=== PATIENT | female | born 1980 | race Caucasian/White ===

== ENCOUNTER 2018-11-27 23:17 | Emergency (ER) | payer MEDICAID ==
[~2018-11-27] VITALS: Ht 152.4 cm; Wt 55.8 kg
[2018-11-27 23:20] VITALS: BP 114/70
--- NOTE | 2018-11-27 23:20 | NUR ---
TO BED # 8 AMBULATORY, REPORT GIVEN TO PERLITA TURK
--- NOTE | 2018-11-27 23:24 | NUR ---
PATIENT PRESENTS ER WITH C/O SOB, COUGH AND CONGESTION X 2 WEEKS. PT STATED SHE HAS HX OF ASTHMA BUT DOES NOT CURRENTLY HAVE MEDICATION; PT HAS SOME WHEEZING BILATERAL. O2 SAT IS 99 PERCENT ON RA AT THIS TIME. PT DENIES FEVER AND VOMITING AND DIARRHEA. PT HAS SOME NAUSEA. PT STATES SHE IS 17 WEEKS AND IS CURRENTLY UNDER OB CARE. PT IS . PATIENT STATES PAIN OF 8/10 AT THIS TIME; VSS; PATIENT POSITIONED FOR COMFORT; HOB ELEVATED; BEDRAILS UP X2; BED DOWN. ER MD MADE AWARE OF PT STATUS.
[2018-11-27] MEDS ORDERED: ALBUTEROL 0.083% 2.5 MG/3 ML NEBU INH ONE (23:25)
[2018-11-27] MEDS ORDERED: ALBUTEROL SULFATE/IPRATROPIU 3 ML SOL IH ONE (23:25)
--- NOTE | 2018-11-27 23:31 | NUR ---
Breathing treatment administered at bedside by respiratory therapist.
[2018-11-27] MEDS ORDERED: ACETAMINOPHEN EXTRA STRENGTH 500 MG TAB PO ONE (23:50)
--- NOTE | 2018-11-27 23:53 | NUR ---
PATIENT STATES SHE FEELS RELIEF, NO WHEEZING. PATIENT BREATHING EVEN AND UNLABORED. DENIES SOB AT THIS TIME.
--- NOTE | 2018-11-28 00:35 | NUR ---
Dr. Shah re-evaluating patient at bedside.
[2018-11-28] MEDS ORDERED: ALBUTEROL SULFATE/IPRATROPIU 3 ML SOL IH ONE (00:40)
[2018-11-28] MEDS ORDERED: ALBUTEROL 0.083% 2.5 MG/3 ML NEBU INH ONE (00:40)
[2018-11-28 01:27] VITALS: BP 114/70
--- NOTE | 2018-11-28 01:27 | NUR ---
Patient discharged with v/s stable. Written and verbal after care instructions given and explained. Patient alert, oriented and verbalized understanding of instructions. Ambulatory with steady gait. All questions addressed prior to discharge. ID band removed. Patient advised to follow up with PMD. Rx of ZOFRAN, ALBUTEROL, AND MACROBID given. Patient educated on indication of medication including possible reaction and side effects. Opportunity to ask questions provided and answered.
== END 2018-11-28 01:27 | disposition home or self-care (01) ==
LOC: MED 23:17
DX: O99.512 Diseases of the respiratory system complicating pregnancy, second trimester (principal); O23.42 Unspecified infection of urinary tract in pregnancy, second trimester; J45.901 Unspecified asthma with (acute) exacerbation; E07.9 Disorder of thyroid, unspecified; Z3A.15 15 weeks gestation of pregnancy
CPT/HCPCS: 81002; 94640; 99284; J7613; J7620

== ENCOUNTER 2019-03-26 23:46 | Observation (INO) | payer MEDICAID ==
[~2019-03-26] VITALS: Ht 152.4 cm; Wt 60.8 kg
[2019-03-26 23:50] VITALS: BP 119/77
[2019-03-27] MEDS ORDERED: ONDANSETRON 4 MG/2 ML VIAL IVP PRN (00:50)
[2019-03-27] MEDS ORDERED: LACTATED RINGERS 1,000 ML IV SCH (00:55)
[2019-03-27] MEDS ORDERED: ALUMINUM HYD/MAG/SIMETHICONE 30 ML UDC PO SCH (01:00)
[2019-03-27] MEDS ORDERED: FAMOTIDINE 20 MG TAB PO SCH ×2 (01:00→09:00)
[2019-03-27] MEDS ORDERED: TERBUTALINE 1 MG/ML VIAL SUBQ STA (01:29)
[2019-03-27] MEDS ORDERED: NALBUPHINE 10 MG/ML AMP IVP PRN ×2 (01:30→07:45)
[2019-03-27] MEDS ORDERED: TERBUTALINE 1 MG/ML VIAL SUBQ ONE ×2 (01:49→02:10)
[2019-03-27] MEDS ORDERED: NALBUPHINE 10 MG/ML AMP ONE (01:50)
[2019-03-27 02:36] VITALS: BP 126/78
[2019-03-27] MEDS ORDERED: TERBUTALINE 2.5 MG TAB PO SCH (06:00)
[2019-03-27] MEDS ORDERED: TERBUTALINE 2.5 MG TAB ONE ×2 (06:03→10:26)
[2019-03-27] MEDS ORDERED: ALUMINUM HYD/MAG/SIMETHICONE 30 ML UDC PO PRN ×2 (07:40→09:30)
[2019-03-27] MEDS ORDERED: ALUMINUM HYD/MAG/SIMETHICONE 30 ML UDC ONE ×2 (07:58→14:31)
[2019-03-27 10:51] LABS: BASOPHILS % (AUTO) 0.2 % (0.0-2.0); EOSINOPHILS % (AUTO) 0.2 % (0.0-4.0); HEMATOCRIT 26.9 % (36-48); HEMOGLOBIN 8.9 g/dL (12.0-16.0); LYMPHOCYTES # (AUTO) 1.6 K/uL (2.5-16.5); LYMPHOCYTES % (AUTO) 12.5 % (20.5-51.1); MEAN CORPUSCULAR HEMOGLOBIN 30 pg (27-31); MEAN CORPUSCULAR HGB CONC 33 g/dL (33-37); MEAN CORPUSCULAR VOLUME 91.1 fL (80-94); MONOCYTES # (AUTO) 0.6 K/uL (0.8-1.0); MONOCYTES % (AUTO) 4.6 % (1.7-9.3); NEUTROPHILS # (AUTO) 10.6 K/uL (1.8-7.7); NEUTROPHILS % (AUTO) 82.5 % (42.2-75.2); PLATELET COUNT (AUTO) 257 K/uL (140-450); RED BLOOD CELL COUNT(AUTO) 2.95 MIL/uL (4.20-5.40); RED CELL DISTRIBUTION WIDTH 13.7 % (11.6-13.7); WHITE BLOOD COUNT (AUTO) 12.8 K/uL (4.8-10.8)
[2019-03-27 11:09] LABS: ALBUMIN 2.2 g/dL (3.4-5.0); BILIRUBIN,DIRECT 0.1 mg/dL (0.0-0.3); TOTAL BILIRUBIN 0.2 mg/dL (0.0-1.0)
[2019-03-27] MEDS ORDERED: ACETAMINOPHEN 325 MG TAB PO SCH (14:30)
[2019-03-27] MEDS ORDERED: ACETAMINOPHEN 325 MG TAB ONE (14:31)
== END 2019-03-27 15:40 | disposition home or self-care (01) ==
LOC: MED 23:46 → MLD 03-27 00:01
PROVIDERS: ADMIT Obstetrics & Gynecology; ATTEND Obstetrics & Gynecology
DX: O26.893 Other specified pregnancy related conditions, third trimester (principal); R10.13 Epigastric pain; O21.2 Late vomiting of pregnancy; O99.89 Other specified diseases and conditions complicating pregnancy, childbirth and the puerperium; M54.9 Dorsalgia, unspecified; Z3A.33 33 weeks gestation of pregnancy
CPT/HCPCS: 36415; 76705; 80076; 81000; 85025; 96372; 96374; 99281; G0378; J2300; J2405; J3105; J7120; Q0092